=== PATIENT | female | born 1960 | race Caucasian/White ===

== ENCOUNTER 2022-01-31 00:37 | Day surgery (SDC) | payer BC, MEDICARE, SELFPAY ==
[2022-01-21 12:57] VITALS: BMI 26.5
--- NOTE | 2022-01-21 13:04 | PC.NURSE ---
Report to the Outpatient Waiting Room, entrance under the green pavilion located off [facility], at time 0730 on date 01/31/22. Planned Procedure Time: 0930. Time changes happen often and if your time is changed the preop area will call you the afternoon before. - You and your visitor will be asked to self-screen and do not enter if you have any COVID symptoms. - Only one visitor is requested with a max of two and NO children visitors are allowed at this time. - The patient visitor may be requested to leave or wait in car when not with patient due to distancing restrictions. - A mask is optional within the hospital. Patients may have clear liquids (water, carbonated beverages, clear teas, apple juice) until 3 hours prior to surgery with a maximum of 20 ounces. - No food from midnight until time of surgery Take the following medications with a SIP of water the morning of surgery: LEVOTHYROXINE, METOPROLOL, MILNACIPRAN, PRAMIPEXOLE, PREGABALIN, TOPIRAMATE. INHALER, GABAPENTIN, AND PAIN PILL IF NEEDED Medications to discontinue per physician : VITAMIN Date to take last dose: 01/27/[address] CHEN FOR INSTRUCTIONS ON STOPPING DICLOFENAC AND MELOXICAM Please no make-up, nail algerian, hairspray, perfume, deodorant, or body powder the day of surgery. No jewelry (including any body piercings) or valuables the day of surgery, leave them at home. Please take a shower or bath the night before, or the morning of, surgery with an antibacterial soap. Wear comfortable, loose fitting clothing. - Jewelry must be removed prior to entering the operating room. Rings and piercings that are not removed may be cut off. - The hospital will not accept responsibility for valuables. - Please leave all valuables, including medications, at home the day of surgery. If you are going home after surgery, a licensed warehouse driver must drive you home. - NO public transportation without another adult if you receive anesthesia. - We recommend that an adult stay with you for 24 hours following discharge. - We also recommend that you do not drive, make important decision, drink alcoholic beverages, or take any drugs that were not prescribed by your health care provider for at least 24 hours after your discharge time. Follow any additional instructions given to you from your surgeon. If you or anyone in your household have experienced Covid symptoms in the past week, please notify your surgeon or the nurse liaison at the phone number below for possible testing. Telephone instructions given to JEREMIAH YE and asked if any additional questions and then verbalized understanding. Patient advised to call surgeon office or pre surgery nurse liaison [phone] if any additional questions.
[2022-01-31] VITALS (10 sets, daily range): BP systolic 103–126; BP diastolic 52–66; PULSE 61–88; RESP 12–20; TEMP 36.5–36.8; O2SAT 100
[2022-01-31] MEDS: LACTATED RINGERS 1,000 ML 30 ML IV CONT ×2 (08:11→11:35)
--- NOTE | 2022-01-31 10:01 | WPDANESEPPF ---
Anes - Initial Pre Proc Eval Procedure: Operation Date: 01/31/22 09:30 Proposed Procedures p Revision of Implanted Dorsal Column Stimulator - Kenrick Claudio MD Date/Time: 01/31/22 10:01 Surgeon: Kenrick Claudio MD Pre Op Diagnosis: Chronic Back and Left Leg Pain Patient Data Age: 61 Gender: F Height: 1.6 m Weight: 69.3 kg Last Vital Signs Temp 36.8 C 01/31/22 08:06 Pulse 82 01/31/22 08:06 Resp 14 01/31/22 08:06 BP 120/58 L 01/31/22 08:06 Pulse Ox 100 01/31/22 08:06 O2 Del Method Room Air 01/31/22 08:06 Allergies Allergy/AdvReac Type Severity Reaction Status Date / Time codeine Allergy Mild Rash Verified 01/31/22 08:12 Home Medications Medication Instructions Recorded Confirmed Type albuterol sulfate 90 mcg/actuation 2 inh inhalation TID PRN 11/19/21 01/21/22 History aerosol inhaler Bronchospasm amitriptyline 25 mg tablet 25 mg PO QHS 11/19/21 01/21/22 History blood-glucose sensor (Dexcom G6 11/19/21 11/19/21 History Sensor device) diclofenac sodium 75 mg 75 mg PO DAILY PRN Pain 11/19/21 01/21/22 History tablet,delayed release galcanezumab-gnlm 120 mg/mL 120 mg subcut MONTHLY 11/19/21 01/21/22 History subcutaneous syringe (Emgality) levothyroxine 112 mcg capsule 112 mcg PO DAILY 11/19/21 01/21/22 History meloxicam 15 mg tablet 15 mg PO DAILY PRN Pain 11/19/21 01/21/22 History metoprolol tartrate 25 mg tablet 12.5 mg PO BID 11/19/21 01/21/22 History milnacipran 25 mg tablet (Savella) 50 mg PO BID 11/19/21 01/21/22 History ondansetron HCl 4 mg tablet 4 mg PO Q8H PRN Nausea 11/19/21 01/21/22 History pramipexole 0.5 mg tablet 0.5 mg PO QHS 11/19/21 01/21/22 History pravastatin 40 mg tablet 40 mg PO HS 11/19/21 01/21/22 History pregabalin 150 mg capsule (Lyrica) 300 mg PO BID 11/19/21 01/21/22 History sumatriptan succinate 3 mg/0.5 mL 3 mg subcut Q1H PRN Migraine 11/19/21 01/21/22 History subcutaneous pen injector Headache (Zembrace Symtouch) topiramate 200 mg tablet 200 mg PO BID 11/19/21 01/21/22 History topiramate 50 mg tablet 50 mg PO BID 11/19/21 01/21/22 History tramadol 50 mg tablet 50 mg PO BID PRN Pain 11/19/21 01/21/22 History vitamin B complex (B 1 tablet PO DAILY 11/19/21 01/21/22 History Complex-Vitamin B12 tablet) cyclobenzaprine 10 mg tablet 10 mg PO TID PRN Pain 01/21/22 01/21/22 History fluticasone propionate 50 1 spray intranasal Q12H PRN 01/21/22 01/21/22 History mcg/actuation nasal Allergy Symptoms spray,suspension (Allergy Relief (fluticasone)) tirzepatide 7.5 mg/0.5 mL 7.5 mg subcut WEEKLY 01/21/22 01/21/22 History subcutaneous pen injector (Mounjaro) Patient hx anesthesia problems: none Family hx anesthesia problems: none Results Review: All pre-operative results and documents have been reviewed as part of the pre-operative evaluation. [facility] Past Medical History Medical History Arthritis Diabetes GERD (gastroesophageal reflux disease) Headache IBS (irritable bowel syndrome) Thyroid disease Surgical History Surgical History H/O sinus surgery H/O: hysterectomy History of cholecystectomy Family History Family History Other Asthma Breast cancer Depression Diabetes mellitus Heart disease Hypertension Social History Social History Smoking status: Never smoker Alcohol intake: never Substance use: never Substance use type: does not use Living arrangements: with family Spiritual care concerns: No Anes - Eval Final PreProcedure Day of Procedure 01/31/22 10:01 Patient weight: overweight Heart: regular rate and rhythm Lungs: clear to auscultation Airway: Mallampati scale class II Neurological: alert and oriented Last oral intake: >/= 8 hours ASA classification:
--- NOTE | 2022-01-31 10:16 | PM.IMHP ---
H&P: HPI History of Present Illness Date/Time: 01/31/22 10:16 Chief Complaint: Back and leg pain Narrative: Nancy is a 61-year-old female with back and leg pain treated by at dorsal column stimulator successfully but that requires a generator change and has pain near her generator site. We will therefore move the generator to a different location. She has not changed since we saw her last. She does not have specific muscle group weakness or dermatomal numbness. She is not having bowel or bladder difficulty. Review of Systems Review of Systems: Patient denies shortness of breath, cough, fever, chills, nausea, vomiting, weight loss weight gain chest dysuria. She has back and leg pain as above. Review of systems is otherwise negative on 12 systems except as noted elsewhere. [facility] Past Medical History Medical History Arthritis Diabetes GERD (gastroesophageal reflux disease) Headache IBS (irritable bowel syndrome) Thyroid disease Surgical History Surgical History H/O sinus surgery H/O: hysterectomy History of cholecystectomy Family History Family History Other Asthma Breast cancer Depression Diabetes mellitus Heart disease Hypertension Social History Social History Smoking status: Never smoker Alcohol intake: never Substance use: never Substance use type: does not use Living arrangements: with family Spiritual care concerns: No Meds Home Medications and Allergies Home Medications Medication Instructions Recorded Confirmed Type albuterol sulfate 90 mcg/actuation 2 inh inhalation TID PRN 11/19/21 01/21/22 History aerosol inhaler Bronchospasm amitriptyline 25 mg tablet 25 mg PO QHS 11/19/21 01/21/22 History blood-glucose sensor (Dexcom G6 11/19/21 11/19/21 History Sensor device) diclofenac sodium 75 mg 75 mg PO DAILY PRN Pain 11/19/21 01/21/22 History tablet,delayed release galcanezumab-gnlm 120 mg/mL 120 mg subcut MONTHLY 11/19/21 01/21/22 History subcutaneous syringe (Emgality) levothyroxine 112 mcg capsule 112 mcg PO DAILY 11/19/21 01/21/22 History meloxicam 15 mg tablet 15 mg PO DAILY PRN Pain 11/19/21 01/21/22 History metoprolol tartrate 25 mg tablet 12.5 mg PO BID 11/19/21 01/21/22 History milnacipran 25 mg tablet (Savella) 50 mg PO BID 11/19/21 01/21/22 History ondansetron HCl 4 mg tablet 4 mg PO Q8H PRN Nausea 11/19/21 01/21/22 History pramipexole 0.5 mg tablet 0.5 mg PO QHS 11/19/21 01/21/22 History pravastatin 40 mg tablet 40 mg PO HS 11/19/21 01/21/22 History pregabalin 150 mg capsule (Lyrica) 300 mg PO BID 11/19/21 01/21/22 History sumatriptan succinate 3 mg/0.5 mL 3 mg subcut Q1H PRN Migraine 11/19/21 01/21/22 History subcutaneous pen injector Headache (Zembrace Symtouch) topiramate 200 mg tablet 200 mg PO BID 11/19/21 01/21/22 History topiramate 50 mg tablet 50 mg PO BID 11/19/21 01/21/22 History tramadol 50 mg tablet 50 mg PO BID PRN Pain 11/19/21 01/21/22 History vitamin B complex (B 1 tablet PO DAILY 11/19/21 01/21/22 History Complex-Vitamin B12 tablet) cyclobenzaprine 10 mg tablet 10 mg PO TID PRN Pain 01/21/22 01/21/22 History fluticasone propionate 50 1 spray intranasal Q12H PRN 01/21/22 01/21/22 History mcg/actuation nasal Allergy Symptoms spray,suspension (Allergy Relief (fluticasone)) tirzepatide 7.5 mg/0.5 mL 7.5 mg subcut WEEKLY 01/21/22 01/21/22 History subcutaneous pen injector (Mounjaro) Allergies Allergy/AdvReac Type Severity Reaction Status Date / Time codeine Allergy Mild Rash Verified 01/31/22 08:12 Vital Signs Vital Signs - 24 hr 01/31/22 08:06 Temperature 98.2 F Pulse Rate 82 Respiratory Rate 14 Blood Pressure 120/58 L Pulse Oximetry 100 Oxygen Delivery Room Air Exam Narrative
--- NOTE | 2022-01-31 10:19 | WPDHPUPDATE1 ---
History and Physical Update Update Date/Time: 01/31/22 10:19 History and Physical has been reviewed, including an updated exam of the patient. There are NO changes in the patient's condition. Risks, benefits, and alternatives have been discussed and questions answered. Patient agrees to proceed with procedure.
[2022-01-31] MEDS: ceFAZolin 2 GM/D5W 50 ML 2 GM/50 ML BAG IVPB (10:27)
[2022-01-31] MEDS: LIDO 1%/EPINEPHRINE/PF 1:200,000 30 ML VIAL INFILTRATE (11:02)
[2022-01-31] MEDS: VANCOMYCIN HCL 1,000 MG VIAL 1000 MG TOPICAL (11:02)
--- NOTE | 2022-01-31 12:01 | P.OP_ITS ---
Procedure Note - Detailed Date of Procedure 01/31/22 Pre-op Diagnosis Chronic Back and Left Leg Pain Post-op Diagnosis Same Procedure Performed Revision of dorsal column stimulator gener Surgeon Kenrick Claudio MD Medical Aide [place] Anesthesia General Indications Nancy is a 61-year-old female with back and leg pain successfully treated by a dorsal column stimulator that requires a new battery which will also be moved to a different spot because she has lost weight and is painful in its current location. Description of Procedure Patient was brought to the operating room in the supine position, was sedated, intubated placed under general anesthesia in routine fashion. She was then turned into the prone position on a Alexandre frame. The of operation her back is examined, marked for incision, prepped and draped in routine sterile fashion. Incision was marked transversely above the right buttock and again transversely in the right flank. These areas were injected with 0.5% lidocaine with [id number] epinephrine. Intravenous antibiotics given prior to incision. Incision was made with a 10 blade scalpel down to the subcutaneous tissues. Bovie cautery was used to come to the soft tissue and discover the generator which was removed from the pocket. The wires were uncoiled from the soft tissue and removed from the generator. Her at the flank incision a subcutaneous pocket was created using toothed forceps and curved Lugo scissors. A tunneler was used to Kelechi the wires from incision above the buttock to the flank incision. Here they were inserted into the generator slots and secured there using the small screwdriver that purpose. Impedance testing was carried out to confirm good connectivity which was confirmed. Both pockets were copiously irrigated with bacitracin irrigation. Vancomycin impregnated pellets were placed in the pocket and the generator was placed in the pocket with excess wire coiled up underneath it. Both wounds were then closed with 3-0 Vicryl buried interrupted sutures in the dermis and a running 4- 0 Monocryl subcuticular stitch in the skin and Dermabond and a Telfa and Tegaderm dressing. The patient was then allowed to wake up in the operating room and was taken to the recovery room in stable condition. There were no immediate complications of this operation. All counts were reported correct at the end of the case. Blood loss was 5 cc. Estimated Blood Loss 5 IV Fluids 1,000 Complications None Disposition PACU [facility] Billing Surgery - Charge Forward: Surgery Billing
[2022-01-31] MEDS: traMADol HCL (*CRX) 50 MG TABLET PO (12:54)
== END 2022-01-31 13:50 | disposition home or self-care (01) ==
PROVIDERS: Visit Provider Neurological Surgery
PROC: (CPT 63685; principal; 2022-01-31 09:30)
DX: Z45.42 Encounter for adjustment and management of neurostimulator (principal); M54.9 Dorsalgia, unspecified; M79.605 Pain in left leg; G89.29 Other chronic pain; E11.9 Type 2 diabetes mellitus without complications; K21.9 Gastro-esophageal reflux disease without esophagitis; E07.9 Disorder of thyroid, unspecified; K58.9 Irritable bowel syndrome, unspecified; Z79.51 Long term (current) use of inhaled steroids
CPT/HCPCS: 63688; 63663; 36415; 86850; 86900; 86901; A9270; J0330; J0690; J1100; J2250; J2370; J2405; J2704; J3010; J3370; J7120